=== PATIENT | female | born 1960 | race Two or more races ===

== ENCOUNTER → 2018-08-23 | Outpatient (CLI) | payer OTHER ==
[2016-03-11 13:58] VITALS: BP 152/76
[~2018-08-23] MED LIST: DICL75TA PO; GABA-586 PO; METF500T16 PO
--- NOTE | 2018-08-23 16:59 | KCIC ---
Bilateral digital screening mammograms: Reason for examination: Routine screening. Comparison is made to previous studies dated 08/05/2017 and 01/06/2016. Interpretation was made with the benefit of CAD. The skin and nipples show no abnormalities. No abnormal axillary lymph nodes are seen. The breast parenchyma shows scattered fibroglandular density. (Breast density: Category B.) There continues to be an intramammary lymph node at the 10:00 C position of the right breast. There are no new dominant masses, suspicious calcifications or architectural distortions. Some benign calcifications are present. Impression: No evidence of malignancy. Recommend routine screening. BI-RADS category 2: Benign "Our facility is accredited by the [employer]ammography [employer]." This patient's information has been entered into a reminder system for the patient to be notified with the results of her examination and a target date for the next mammogram. Electronically signed by: Jenna Veras MD (08/23/2018 4:56 PM) [id number]
== END | disposition home or self-care (01) ==
LOC: KCIC MAMMO 12:28
PROVIDERS: ATTEND Family Medicine
DX: Z12.31 Encounter for screening mammogram for malignant neoplasm of breast (principal)
CPT/HCPCS: 77067

== ENCOUNTER → 2018-12-01 | Outpatient (CLI) | payer OTHER ==
[2016-03-11 13:58] VITALS: BP 152/76
[~2018-12-01] MED LIST changes: -GABA-586 PO; +GABA300C18 PO; +GADOBUTROL 7.5 MMOL/7.5 ML VIAL IV ONE
[2018-12-01 13:37] LABS: CREATININE 0.7 mg/dL (0.6-1.0); GFR 86.2
--- NOTE | 2018-12-01 14:32 | RAD ---
MRI of the Brain without and with Contrast 12/01/2018 Clinical History: Occipital headaches. Technique: Unenhanced T1-weighted sagittal and axial and FLAIR, T2-weighted, gradient echo and diffusion-weighted axial images of the brain were obtained. After the intravenous administration of 7 cc of Gadavist, enhanced T1-weighted axial, sagittal and coronal images of the brain were obtained. Findings: No previous studies are available for comparison. There is mild generalized parenchymal atrophy. Patchy and several small scattered areas of increased signal intensity are seen within the periventricular and subcortical white matter of both cerebral hemispheres consistent most likely with areas of mild small vessel ischemic disease. A homogeneously enhancing extra-axial mass is seen arising from the skull base within the left middle cranial fossa inferior to the anterior left temporal lobe. This measures 1.3 x 1.2 x 0.8 cm in transverse, AP and craniocaudal dimensions. This is consistent with a meningioma. There is very mild mass effect upon the anterior left temporal lobe without evidence of midline shift. No acute parenchymal abnormality is seen. No area of abnormal parenchymal contrast enhancement is noted. No extra-axial fluid collection is seen. There is no MRI evidence of acute ischemia/infarction. Mild mucosal thickening in seen scattered throughout the paranasal sinuses. There are minimal bilateral mastoid effusions. Normal flow voids are seen within the major vascular structures surrounding the brain parenchyma. IMPRESSION: 1. 1.3 cm meningioma is seen inferior to the anterior left temporal lobe. There is very mild mass effect without evidence of midline shift. 2. No acute parenchymal abnormality is seen. Electronically signed by: Adrian Mccoy MD (12/01/2018 2:29 PM) [id number]
== END | disposition home or self-care (01) ==
LOC: MRI 13:25
PROVIDERS: ATTEND Family Medicine
DX: D32.0 Benign neoplasm of cerebral meninges (principal); H74.8X3 Other specified disorders of middle ear and mastoid, bilateral; G31.89 Other specified degenerative diseases of nervous system
CPT/HCPCS: 36415; 70553; 82565; A9585

== ENCOUNTER → 2019-12-05 | Outpatient (CLI) | payer OTHER ==
[2016-03-11 13:58] VITALS: BP 152/76
[~2019-12-05] MED LIST changes: -GADOBUTROL 7.5 MMOL/7.5 ML VIAL IV ONE
--- NOTE | 2019-12-05 15:03 | KCIC ---
EXAM: Bilateral screening mammogram. HISTORY: 59-year-old female presents for screening mammography. TECHNIQUE: Full-field digital craniocaudal and mediolateral oblique views of both breasts are obtained for evaluation. Computer aided detection with Eachbaby[employer] software version 9.3 was applied. COMPARISON: 08/23/2018 BREAST PARENCHYMAL DENSITY: Level B - Scattered fibroglandular densities. FINDINGS: There is no new suspicious mass, microcalcification or region of architectural distortion. There is a biopsy clip within the right breast. 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 IMPRESSION: BI-RADS Category 2: Benign finding(s). RECOMMENDATION: Annual mammography is recommended. If your mammogram demonstrates that you have dense breast tissue, which could hide abnormalities, and if you have other risk factors for breast cancer that have been identified, you might benefit from supplemental screening tests that may be suggested by your ordering physician. Dense breast tissue, in and of itself, is a relatively common condition. This information is not provided to cause undue concern, but rather to raise your awareness and to promote discussion with your physician regarding the presence of other risk factors, in addition to dense breast tissue. A report of your mammography results will be sent to you and your physician. You should contact your physician if you have any questions or concerns regarding this report. Mammography is a sensitive method for finding small breast cancers, but it does not detect them all and is not a substitute for careful clinical examination. A negative mammogram does not negate a clinically suspicious finding and should not result in delay in biopsying a clinically suspicious abnormality. PQRS compliance statement - Patient information was entered into a reminder system with a target due date for the next mammogram. "Our facility is accredited by the [employer]." Electronically signed by: Martita Cardoza MD (12/05/2019 3:00 PM) [id number]
== END ==
LOC: KCIC MAMMO 13:51
PROVIDERS: ATTEND Family Medicine
DX: Z12.31 Encounter for screening mammogram for malignant neoplasm of breast (principal)
CPT/HCPCS: 77067

== ENCOUNTER → 2021-01-05 | Outpatient (CLI) | payer OTHER ==
[2016-03-11 13:58] VITALS: BP 152/76
--- NOTE | 2021-01-06 16:29 | RAD ---
DATE: 01/05/2021 1:21 PM EXAM: DIGITAL SCREEN BILAT W/CAD HISTORY: Screening COMPARISON: 12/05/2019 Bilateral full field craniocaudal and mediolateral oblique images were obtained using digital technique. This study was interpreted with the benefit of Computerized Aided Detection (CAD). FINDINGS: Breast Density: SCATTERED The breast parenchyma shows scattered fibroglandular densities. Breast parenchyma level B No suspicious masses, microcalcifications or architectural distortion is present to suggest malignancy in either breast. The visualized axillae are unremarkable. IMPRESSION: No mammographic evidence of malignancy. BI-RADS CATEGORY: 1 NEGATIVE RECOMMENDED FOLLOW-UP: 12M 12 MONTH FOLLOW-UP Annual screening mammography is recommended, unless clinically indicated sooner based on symptoms or change in physical exam. PQRS compliance statement: Patient information was entered into a reminder system with a target due date for the next mammogram. Mammography is a sensitive method for finding small breast cancers, but it does not detect them all and is not a substitute for careful clinical examination. A negative mammogram does not negate a clinically suspicious finding and should not result in delay in biopsying a clinically suspicious abnormality. "Our facility is accredited by the [employer] Mammography [employer]."
== END ==
LOC: MAMMO 13:16
PROVIDERS: ATTEND Family Medicine
DX: Z12.31 Encounter for screening mammogram for malignant neoplasm of breast (principal)
CPT/HCPCS: 77067

== ENCOUNTER → 2022-01-08 | Outpatient (CLI) | payer OTHER ==
[2016-03-11 13:58] VITALS: BP 152/76
[~2022-01-08] MED LIST changes: +GADOTERATE 7.5 MMOL/15ML VIAL. IVP ONE
[2022-01-08 15:34] LABS: CREATININE 0.7 mg/dL (0.6-1.0); GFR 85.4
--- NOTE | 2022-01-08 15:59 | RAD ---
EXAM: Brain MRI with and without contrast. HISTORY: Meningioma. TECHNIQUE: Multiplanar, multisequence magnetic resonance imaging of the brain was performed prior to and following the administration of intravenous contrast. COMPARISON: 12/01/2018 FINDINGS: There is no hemorrhage. There is no mass effect or midline shift. There is no acute or suba cute infarct. There are few scattered nonspecific foci of signal change within the cerebral white mat ter. There is an enhancing dural based mass within the posterior inferior left middle cranial fossa measur ing 1.0 cm, the appearance of which favors a meningioma. There is no adjacent parenchymal edema. The orbits are unremarkable. There is mild paranasal sinus mucosal thickening. There is a left kellie bullosa. The mastoid air cells are unremarkable. There are normal flow voids within the cerebral ves sels. IMPRESSION: 1. Stable 10 mm suspected meningioma within the posterior inferior left middle cranial fossa. No daria tional parenchymal signal abnormality is seen. 2. Stable scattered foci of signal change within the cerebral white matter, a nonspecific finding whi ch can be seen with chronic small vessel disease and chronic migraine headaches. 3. No acute intracranial finding. Electronically signed by: Martita Cardoza MD (01/08/2022 3:56 PM) [facility]
--- NOTE | 2022-01-09 09:06 | RAD ---
Three views right shoulder History: pain Internally and externally rotated AP of shoulder obtained, as well as "Y" view. The glenohumeral relationship is normal. The visualized osseous structures appear normal. Impression: No acute findings. end impression Three view lumbosacral spine History: Pain AP, coned-down lateral and lateral views of the lumbosacral spine were obtained. The vertebral bodies are aligned. There is no loss of vertebral body stature. Intervertebral disc hei ghts are preserved. There is marginal spurring of the endplates. Impression: No acute findings. End Impression Electronically signed by: Elier White III, MD (01/09/2022 9:04 AM) [facility]
== END ==
LOC: MRI 13:50
PROVIDERS: ATTEND Family Medicine
DX: D32.0 Benign neoplasm of cerebral meninges (principal); M77.8 Other enthesopathies, not elsewhere classified; M54.50 Low back pain, unspecified; E11.43 Type 2 diabetes mellitus with diabetic autonomic (poly)neuropathy
CPT/HCPCS: 36415; 70553; 72100; 73030; 82565; A9575